=== PATIENT | male | born 1995 | race Caucasian/White ===

== ENCOUNTER 2023-02-16 10:57 | Emergency (ER) | payer BC ==
[~2023-02-16] VITALS: Ht 175.3 cm; Wt 77.1 kg
[2023-02-16 11:19] VITALS: BP 107/66
--- NOTE | 2023-02-16 11:46 | NUR ---
Patient being evaluated by physician at bedside.
[2023-02-16] MEDS ORDERED: NAPR-1704 PO (11:55)
[2023-02-16] MEDS ORDERED: PHEN177S23 PO (11:55)
--- NOTE | 2023-02-16 12:05 | NUR ---
Strep swabs obtained, walked to lab. Handed to CPT. Kranthi
[2023-02-16 12:30] VITALS: BP 120/62
--- NOTE | 2023-02-16 12:30 | NUR ---
Patient discharged with v/s stable. Written and verbal after care instructions given. Patient alert, oriented and verbalized understanding of instructions. Ambulatory with steady gait. All questions addressed prior to discharge. ID band removed. Patient advised to follow up with PMD. Rx of Naproxen and Phenol given. Opportunity to ask questions provided and answered. WORK NOTE HANDED TO PATIENT.
--- NOTE | 2023-02-16 12:31 | NUR ---
The patient's care was reviewed and supervised by Jeri Neal, RN, RN.
== END 2023-02-16 12:30 | disposition home or self-care (01) ==
LOC: MED 10:57
DX: J02.9 Acute pharyngitis, unspecified (principal); F12.90 Cannabis use, unspecified, uncomplicated
CPT/HCPCS: 87081; 99283